=== PATIENT | female | born 1985 | race Caucasian/White ===

== ENCOUNTER 2022-06-17 18:31 | Emergency (ER) | payer BC, MEDICAID ==
[~2022-06-17] VITALS: Ht 157.5 cm; Wt 59.0 kg
[~2022-06-17 18:31] MED LIST: ALBU18HF2 INH; GABA-530 PO; HYDR-4353 PO; HYDR-4383 PO
[2022-06-17] MEDS ORDERED: SUMAtriptan succ. 6 MG/0.5ml vial SQ ONE (22:50)
[2022-06-17] MEDS ORDERED: acetaminophen 325mg tablet PO ONE (22:50)
[2022-06-17 23:07] VITALS: BP 134/90
== END 2022-06-17 23:12 | disposition home or self-care (01) ==
LOC: ER 18:31
DX: G43.909 Migraine, unspecified, not intractable, without status migrainosus (principal); M54.10 Radiculopathy, site unspecified; M62.838 Other muscle spasm; Z98.890 Other specified postprocedural states; Z79.899 Other long term (current) drug therapy
CPT/HCPCS: 96372; 99283; J3030